=== PATIENT | male | born 1985 | race Caucasian/White ===

== ENCOUNTER 2017-07-24 07:54 | Outpatient (CLI) | payer OTHER ==
--- NOTE | 2017-07-24 16:38 | MRI Report ---
EXAM: LEFT HIP MRI WITHOUT CONTRAST EXAM DATE: 07/24/2017 08:48 AM. CLINICAL HISTORY: Pain in left hip. COMPARISON: None. TECHNIQUE: Multiplanar, multisequence T1-weighted and fluid-sensitive, small dqjqk-[id number] sequences of the hip and large [id number]-tl-[id number] sequences of the pelvis without contrast. Other: None. FINDINGS: Bones: No fractures or subluxations. No marrow edema or bone lesions. Left Hip: No acetabular retroversion. Femoral head/neck offset is within normal limits. No effusion o r loose bodies. The articular cartilage is intact. Full-thickness tear anterior superior labrum with a paralabral cyst. Series 701 image 19. New paraLabral cyst is 0.5 x 0.4 cm transverse extending for 1.7 cm cephalocaudal extent, series 601 image 22, series 701 image 18. The ligamentum teres is intact . Other Joints: The visualized lumbar spine, sacroiliac joints, symphysis pubis, and contralateral hip are unremarkable. Musculature: No edema or fatty atrophy. The gluteus medius and minimus tendons are normal. Some jairo atous changes and mild tendinopathy seen at the attachment of the hamstring musculature onto the isch ial tuberosity. The ischiofemoral space is normal. Pelvic Cavity: The visualized viscera are unremarkable. No lymphadenopathy. No free fluid in the pelv is. Other: The visualized sciatic nerves are unremarkable. No bursitis. The subcutaneous tissues are unre markable. IMPRESSION: 1. Full-thickness tear anterior superior labrum with a paralabral cyst. 2. No significant chondromalacia. No fractures or marrow edema. No masses. RADIA MUSCULOSKELETAL RADIOLOGY SECTION Referring Provider Line: [phone] SITE ID: [id number]
== END 2017-07-24 07:55 | disposition home or self-care (01) ==
LOC: DI 07:54
PROVIDERS: ATTEND Radiology Diagnostic Radiology
DX: M25.552 Pain in left hip (principal); S73.192A Other sprain of left hip, initial encounter; M24.852 Other specific joint derangements of left hip, not elsewhere classified

== ENCOUNTER 2018-07-11 15:23 | Emergency (ER) | payer OTHER ==
[2018-07-11] MEDS ORDERED: MECLIZINE 12.5 MG TABLET PO STA (15:59)
[2018-07-11] MEDS ORDERED: ONDANSETRON ODT 4 MG TABLET TL STA (15:59)
--- NOTE | 2018-07-11 16:36 | ED Physician Documentation ---
History of Present Illness - Stated complaint Stated Complaint: DIZZY,VOMITING - Chief complaint Chief Complaint: Neuro - History obtained from History obtained from: Patient, Family - History of Present Illness Timing: Today Pain level max: 0 Pain level now: 0 - Additonal information Additional information: Patient feels like the room is turning around him. Worse with movement. Better with rest. Has not been sick recently. Did recently return from [facility]. Has not been ill recently. This is never happened before. Feels off balance on walking. Review of Systems Constitutional: denies: Fever, Chills Respiratory: denies: Cough GI: reports: Nausea, Vomiting (Once). denies: Abdominal Pain Neurologic: denies: Focal weakness, Numbness, Seizure, Confused, Altered mental status, Headache, Head injury, LOC PD PAST MEDICAL HISTORY - Past Medical History Past Medical History: No - Past Surgical History Past Surgical History: No - Present Medications Home Medications: Ambulatory Orders Medication Instructions Recorded Confirmed Meclizine [Antivert] 12.5 - 25 mg PO Q6H PRN #30 tablet 07/11/18 Ondansetron Odt [Zofran] 4 mg TL Q6H PRN #10 tablet 07/11/18 Scopolamine [Transderm-Scop] 1 each TD Q72H PRN #10 patch.td.3 07/11/18 predniSONE [Deltasone] 10 mg PO ONCE 20 Days tablet 07/11/18 - Allergies Allergies/Adverse Reactions: Allergies Allergy/AdvReac Type Severity Reaction Status Date / Time Sulfa (Sulfonamide Allergy Unknown Verified 07/11/18 15:28 Antibiotics) - Social History Does the pt smoke?: No Smoking Status: Never smoker Does the pt drink ETOH?: No Does the pt have substance abuse?: No PD ED PE NORMAL - Vitals Vital signs reviewed: Yes - General General: Alert and oriented X 3, No acute distress, Well developed/nourished - HEENT HEENT: PERRL, Moist mucous membranes, Other (Negative Hallpike bilaterally. Positive head impulse test ) - Neck Neck: Supple, no meningeal sign - Cardiac Cardiac: RRR, No murmur - Respiratory Respiratory: Clear bilaterally - Abdomen Abdomen: Normal bowel sounds, Soft, Non tender, Non distended - Derm Derm: Warm and dry, No rash - Extremities Extremities: No edema, No calf tenderness / cord - Neuro Neuro: Alert and oriented X 3, body liner 2-12 intact, No motor deficit, No sensory deficit, Normal speech Eye Opening: Spontaneous Motor: Obeys Commands Verbal: Oriented GCS Score: 15 - Psych Psych: Normal mood, Normal affect - Free text exam Free text exam: NIH stroke scale of 0 Results - Vitals Vitals: Vital Signs - 24 hr 07/11/18 07/11/18 15:26 16:49 Temperature 36.7 C 36.7 C Heart Rate 62 50 L Respiratory 18 16 Rate Blood Pressure 130/65 112/61 O2 Saturation 100 96 Oxygen O2 Source Room air PD MEDICAL DECISION MAKING - ED course Complexity details: considered differential, d/w patient, d/w family ED course: 33-year-old male with what appears to be vestibular neuritis. No auditory changes. Does not appear to be BPPV. Will place on a long steroid taper and follow-up with ENT. We will also prescribe medications for home for the vertiginous symptoms. No evidence of stroke. Normal cerebellar test. Able to walk unassisted. No focal neurological deficits. Does have horizontal nystagmus. Positive head impulse test. Patient counseled regarding signs and symptoms for which I believe and urgent re-evaluation would be necessary. Patient with good understanding of and agreement to plan and is comfortable going home at this time This document was made in part using voice recognition software. While efforts are made to proofread this document, sound alike and grammatical errors may occur. Departure - Departure Disposition: 01 Home, Self Care Clinical Impression: Vestibular neuronitis of left ear Condition: Good Instructions: Labyrinthitis Follow-Up: VIDYA ROMANO MD [Primary Care Provider] - [facility] [Provider Group] - Within 1 week Prescriptions: Meclizine [Antivert] 12.5 - 25 mg PO Q6H PRN #30 tablet PRN Reason: Vertigo Ondansetron Odt [Zofran] 4 mg TL Q6H PRN #10 tablet PRN Reason: Nausea / Vomiting predniSONE [Deltasone] 10 mg PO ONCE 20 Days tablet Scopolamine [Transderm-Scop] 1 each TD Q72H PRN #10 patch.td.3 PRN Reason: Vertigo Comments: Follow-up with your doctor for further care. Return if you worsen. It is important to follow-up with a vestibular specialist. Discharge Date/Time: 07/11/18 16:50
[2018-07-11 16:50] VITALS: BP 112/61
== END 2018-07-11 16:50 | disposition home or self-care (01) ==
LOC: ED 15:23
DX: H81.22 Vestibular neuronitis, left ear (principal)
CPT/HCPCS: 99283; A9270; Q0162